=== PATIENT | male | born 1950 | race Caucasian/White ===

== ENCOUNTER 2022-08-18 10:04 | Emergency (ER) | payer OTHER, MEDICARE, BC | END 2022-08-18 11:38 | disposition home or self-care (01) | LOC: BURERS 10:04 | DX: S09.90XA Unspecified injury of head, initial encounter (principal); E78.5 Hyperlipidemia, unspecified; I10 Essential (primary) hypertension; V89.2XXA Person injured in unspecified motor-vehicle accident, traffic, initial encounter | CPT/HCPCS: 70450; 72125; G0390 ==